=== PATIENT | female | born 1980 | race Two or more races ===

== ENCOUNTER → 2018-01-23 | Outpatient (CLI) | payer OTHER ==
--- NOTE | 2018-01-23 14:09 | RAD ---
Indication:Amenorrhea TECHNIQUE: Grayscale, color Doppler and spectral waveform images of the pelvis obtained. COMPARISON: None FINDINGS: The uterus is anteverted and measures 8.1 x 3.3 x 4.7 cm (longitudinal, AP, transverse). Visualized bladder is within normal limits. No free pelvic fluid. Endometrial stripe measures 8 mm in thickness and is within normal limits. Left ovary measures 2.8 x 2.2 x 3.0 cm with a 2.3 x 2.2 x 1.7 cm anechoic cyst with single echogenic septation with trace vascularity in the septation. The left ovary demonstrates evidence of blood flow. The right ovary measures 2.2 x 1.8 x 1.7 cm and demonstrates evidence of blood flow. IMPRESSION: 1. Endometrial stripe within normal limits. 2. Complex left ovarian cyst with thick septation. Follow-up ultrasound in 6-8 weeks recommended. 3. Bilateral ovaries demonstrate evidence of blood flow. Electronically signed by: Trae Summers DO (01/23/2018 2:06 PM) [id number]
== END | disposition home or self-care (01) ==
LOC: US 10:49
PROVIDERS: ATTEND Physician Assistant
DX: N83.292 Other ovarian cyst, left side (principal)
CPT/HCPCS: 76830; 76856

== ENCOUNTER → 2018-04-05 | Outpatient (CLI) | payer OTHER ==
--- NOTE | 2018-04-05 15:44 | RAD ---
Pelvic and transvaginal ultrasound History: Left ovarian cyst Comparison: January 23, 2018 Findings: Multiple transabdominal sonographic images of the pelvis are submitted. Uterus measured 7.9 x 3.2 x 4.9 cm. Right ovary measured 2.2 x 1.9 x 2.7 cm. Left ovary measured 1.8 x 1.9 x 2.3 cm. Endometrium measured 0.4 cm. Transvaginal ultrasound: Multiple transvaginal sonographic images of pelvis are submitted. Left ovary measured 1.9 x 2.9 x 2.2 cm. There are a few follicles present, somewhat septated dominant follicle or small cyst about 0.8 x 1.1 cm. Previously there was a septated cyst up to 2.3 cm present. Uterus measured 5.8 x 3.5 x 4.5 cm. Right ovary measured 1.7 x 2.7 x 3.1 cm, normal low resistance vascularity. There are several follicles of the right ovary. No free fluid is demonstrated. Impression: 1. Previously demonstrated left ovarian septated cyst is smaller, now about 1.1 cm greatest dimension. There is no free fluid. There are follicles of the bilateral ovaries. Electronically signed by: Prosper Adames MD (04/05/2018 3:40 PM) [id number]
== END | disposition home or self-care (01) ==
LOC: US 08:50
PROVIDERS: ATTEND Physician Assistant
DX: N83.292 Other ovarian cyst, left side (principal)
CPT/HCPCS: 76830; 76856